=== PATIENT | female | born 1995 ===

== ENCOUNTER 2016-12-20 17:46 | Emergency (ER) | payer OTHER ==
[2016-12-20 17:54] VITALS: RESP 16; TEMP 97.9; O2SAT 99
[2016-12-20] MEDS ORDERED: Naproxen 500 MG TAB PO STA (18:09)
--- NOTE | 2016-12-20 18:12 | ED PDOC ---
HPI: Abdomen Time Seen by Provider: 12/20/16 17:58 Chief Complaint (Nursing): Female Genitourinary Chief Complaint (Provider): Abdominal Pain History Per: Patient History/Exam Limitations: no limitations Onset/Duration Of Symptoms: Hrs (x4) Current Symptoms Are (Timing): Still Present Additional Complaint(s): Grecia Whitaker is a 21 year old female who presents to the emergency department with a complaint of intermittent lower abdominal pain ongoing since 14:00 today. Denied any fever, chills, burning urination, vaginal bleeding or discharge. Patient stated she took Aleve earlier but felt no relief of symptoms. PMD: [facility] Past Medical History Reviewed: Historical Data, Nursing Documentation, Vital Signs Vital Signs: Last Vital Signs Temp 97.9 F 12/20/16 19:40 Pulse 67 12/20/16 19:40 Resp 16 12/20/16 19:40 BP 115/75 12/20/16 19:40 Pulse Ox 99 12/20/16 21:09 - Medical History PMH: No Chronic Diseases - Surgical History Surgical History: No Surg Hx - Family History Family History: States: Unknown Family Hx - Immunization History Hx Tetanus Toxoid Vaccination: No - Home Medications Home Medications: Ambulatory Orders Medication Instructions Recorded Sulfamethoxazole/Trimethoprim 1 tab PO BID #14 tab 08/18/15 [Bactrim DS 800 mg-160 mg] Naproxen [Naprosyn] 500 mg PO BID PRN #15 tablet 12/20/16 - Allergies Allergies/Adverse Reactions: Allergies Allergy/AdvReac Type Severity Reaction Status Date / Time No Known Allergies Allergy Verified 02/23/16 20:36 Review of Systems ROS Statement: Except As Marked, All Systems Reviewed And Found Negative Constitutional: Negative for: Fever, Chills Gastrointestinal: Positive for: Abdominal Pain (lower quadrants) Genitourinary Female: Negative for: Dysuria, Vaginal Discharge, Vaginal Bleeding Physical Exam - Reviewed Nursing Documentation Reviewed: Yes Vital Signs Reviewed: Yes - Physical Exam Appears: Positive for: Well, Non-toxic, No Acute Distress Head Exam: Positive for: ATRAUMATIC, NORMAL INSPECTION, NORMOCEPHALIC Skin: Positive for: Normal Color Cardiovascular/Chest: Positive for: Regular Rate, Rhythm Respiratory: Positive for: CNT, Normal Breath Sounds Gastrointestinal/Abdominal: Positive for: Bowel Sounds, Soft, Tenderness ( suprapubic LLQ). 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 Endometrium measures 2.5 mm No myometrial mass. Right ovary: Right ovary measures 3 x 1.5 x 2.7 cm. Follicles. Normal blood flow. Left ovary: Left ovary measures 2.9 x 1.5 x 2.7 cm Follicles. Normal blood flow. Free fluid: No free fluid. IMPRESSION: This examination is predicated on a negative test. No acute findings Scribe Attestation: Documented by Dayana Springer, acting as a scribe for Natividad Stubbs MD. Provider Scribe Attestation: All medical record entries made by the Scribe were at my direction and personally dictated by me. I have reviewed the chart and agree that the record accurately reflects my personal performance of the history, physical exam, medical decision making, and the department course for this patient. I have also personally directed, reviewed, and agree with the discharge instructions and disposition. Disposition - Clinical Impression Clinical Impression: Suprapubic pain - Disposition Referrals: [facility] [Outside] Disposition: Routine/Home Disposition Time: 21:11 Condition: STABLE Prescriptions: Naproxen [Naprosyn] 500 mg PO BID PRN #15 tablet PRN Reason: Pain, Moderate (4-7) Instructions: Pelvic Pain in Women (ED) Forms: [employer] (Canadian)
[2016-12-20] MEDS ORDERED: Naproxen 500 MG TAB PO ONE (18:49)
[2016-12-20 19:00] LABS: RBC URINE 1 /hpf (0-3); URINE BILIRUBIN NEGATIVE (NEGATIVE); URINE BLOOD NEGATIVE (NEGATIVE); URINE COLOR YELLOW (YELLOW); URINE GLUCOSE (UA) NEG (Normal); URINE KETONE NEGATIVE (NEGATIVE); URINE LEUKOCYTE ESTERASE NEG Leu/uL (Negative); URINE PROTEIN NEGATIVE (NEGATIVE); URINE UROBILINOGEN 0.2-1.0 mg/dL (0.2-1.0); WBC URINE 1 /hpf (0-5)
[2016-12-20 21:50] VITALS: BP 115/75; PULSE 67
--- NOTE | 2016-12-21 12:57 | US ---
HISTORY: Suprapubic, left lower quadrant pain 1 day duration. LMP 12/17/2016. COMPARISON: None available. TECHNIQUE: Transabdominal only. Real-time technique with 2D, duplex and color Doppler FINDINGS: UTERUS: Measures 2.5 x 4.2 x 6.7 cm. Normal in size and appearance. No fibroid or other mass lesion seen. ENDOMETRIUM: Measures 2.5 mm in diameter. Unremarkable. CERVIX: No cervical abnormality identified. RIGHT OVARY: Measures 1.5 x 3 x 2.7 cm. No solid mass. Normal flow. LEFT OVARY: Measures 1.5 x 2.7 x 3 cm. No solid mass. Normal flow. FREE FLUID: No significant free fluid noted. OTHER FINDINGS: None. IMPRESSION: Unremarkable pelvic ultrasound.
== END 2016-12-20 21:51 | disposition home or self-care (01) ==
LOC: H.ER 17:46
DX: R10.2 Pelvic and perineal pain (principal)

== ENCOUNTER 2017-10-08 13:45 | Emergency (ER) | payer OTHER ==
[2017-10-08 13:49] VITALS: BMI 34.0
--- NOTE | 2017-10-08 14:57 | ED PDOC ---
HPI: Abdomen Chief Complaint (Provider): abdominal pain History Per: Patient History/Exam Limitations: no limitations Onset/Duration Of Symptoms: Days (1) Outside of [place] travel?: No Current Symptoms Are (Timing): Still Present Severity: Severe Pain Scale Rating Of: 9 Location Of Pain/Discomfort: RLQ, LUQ, LLQ Quality Of Discomfort: Cramping Associated Symptoms: Constipation. denies: Fever, Chills, Nausea, Vomiting, Diarrhea, Loss Of Appetite, Back Pain, Urinary Symptoms Exacerbating Factors: None Alleviating Factors: None Last Bowel Movement: Yesterday (hard stool) <Migdalia Pereira - Last Filed: 10/08/17 18:14> <Viv Hay - Last Filed: 10/09/17 09:32> Time Seen by Provider: 10/08/17 14:19 Chief Complaint (Nursing): Abdominal Pain Additional Complaint(s): 22 yr old G presents to ED with complaint of RLQ pain which began last night while she was asleep. She did not try taking anything for the pain. Denies nausea, vomiting, fevers, chills or diarrhea. Reports hx of constipation, last bowel movement was yesterday-hard stool. She is tolerating PO fluids and liquids. Patient is sexually active, last activity was 2 days ago, used condoms , denies vaginal discharge or pruritus. Patient reports similar abdominal pain in the past with normal ultrasounds. LMP 09/27/17, reports regular periods, + dysmenorrhea. PMD: [place] PMHx: denies SurgHx: denies Meds: none Allergies: NKDA (Migdalia Pereira) Supervising Attending Note - Supervising Attending Note The Documented history was done by the: Physician Independent Jeweler, Attending Physician The documented physical exam was done by the: Physician Independent Jeweler, Attending Physician The documented procedures were done by the: Physician Independent Jeweler, Attending Physician - Attestation: I have personally seen and examined this patient.: Yes I have fully participated in the care of the patient.: Yes I have reviewed all pertinent clinical information: Yes <Viv Hay - Last Filed: 10/09/17 09:32> Past Medical History - Medical History PMH: No Chronic Diseases Denies: Chronic Kidney Disease - Surgical History Surgical History: No Surg Hx - Family History Family History: States: Unknown Family Hx - Living Arrangements Living Arrangements: With Family - Social History Current smoker - smoking cessation education provided: No Alcohol: None Drugs: Denies - Immunization History Hx Tetanus Toxoid Vaccination: No <Migdalia Pereira - Last Filed: 10/08/17 18:14> Reviewed: Historical Data, Nursing Documentation, Vital Signs <Viv Hay - Last Filed: 10/09/17 09:32> Vital Signs: Last Vital Signs Temp 98 F 10/08/17 18:18 Pulse 74 10/08/17 18:18 Resp 20 10/08/17 18:18 BP 120/70 10/08/17 18:18 Pulse Ox 98 10/08/17 18:18 - Allergies Allergies/Adverse Reactions: Allergies Allergy/AdvReac Type Severity Reaction Status Date / Time No Known Allergies Allergy Verified 02/23/16 20:36 Review of Systems Constitutional: Negative for: Fever, Chills, Sweats Eyes: Negative for: Eyelid Inflammation ENT: Negative for: Nose Discharge, Throat Pain Cardiovascular: Negative for: Chest Pain, Palpitations Respiratory: Negative for: Cough, Shortness of Breath Gastrointestinal: Positive for: Abdominal Pain, Constipation. Negative for: Nausea, Vomiting, Diarrhea Genitourinary Female: Positive for: Pelvic Pain. Negative for: Dysuria, Vaginal Discharge, Vaginal Bleeding Musculoskeletal: Negative for: Neck Pain, Shoulder Pain, Arm Pain Skin: Negative for: Rash, Lesions Neurological: Negative for: Weakness <Migdalia Pereira - Last Filed: 10/08/17 18:14> ROS Statement: Except As Marked, All Systems Reviewed And Found Negative <Viv Hay - Last Filed: 10/09/17 09:32> Physical Exam - Physical Exam Appears: Positive for: No Acute Distress Head Exam: Positive for: ATRAUMATIC, NORMOCEPHALIC Skin: Positive for: Normal Color, Warm, Dry Eye Exam: Positive for: EOMI, PERRL ENT: Negative for: Pharyngeal Erythema, Tonsillar Exudate Neck: Positive for: Painless ROM, Supple Cardiovascular/Chest: Positive for: Regular Rate, Rhythm. Negative for: Gallop , Murmur Respiratory: Positive for: Normal Breath Sounds. Negative for: Rales, Rhonchi Pulses-Carotid (L): 2+ Pulses-Carotid (R): 2+ Pulses-Radial (L): 2+ Pulses-Radial (R): 2+ Gastrointestinal/Abdominal: Positive for: Bowel Sounds (normal), Soft, Tenderness (to palpation in RLQ, LUQ and LLQ area) Extremity: Positive for: Normal ROM. 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 Negative for: Motor/Sensory Deficits <Migdalia Pereira - Last Filed: 10/08/17 18:14> - Reviewed Nursing Documentation Reviewed: Yes Vital Signs Reviewed: Yes - Physical Exam Appears: Positive for: Well, Non-toxic <Viv Hay - Last Filed: 10/09/17 09:32> - Laboratory Results Result Diagrams: 10/08/17 13:59 10/08/17 13:59 - ECG O2 Sat by Pulse Oximetry: 99 - Progress Condition: Improved <Migdalia Pereira - Last Filed: 10/08/17 18:14> - Laboratory Results Result Diagrams: 10/08/17 13:59 10/08/17 13:59 <Viv Hay - Last Filed: 10/09/17 09:32> - Progress ED Course And Treament: -Upreg: negative -Udip: negative -CBC: normal -BMP: normal -transvaginal US: essentially normal, 1.6cm left follicular cyst, no fluid in pelvis -Toradol 30mg IV once -17:25 : Patient reports symptoms have improved, tolerating PO fluids and solids (Migdalia Pereira) Disposition - Patient ED Disposition Is Patient to be Admitted: No Counseled Patient/Family Regarding: Studies Performed, Need For Followup - Disposition Disposition: Routine/Home Disposition Time: 17:58 <Migdalia Pereira - Last Filed: 10/08/17 18:14> Counseled Patient/Family Regarding: Diagnosis <Viv Hay - Last Filed: 10/09/17 09:32> - Clinical Impression Clinical Impression: Generalized abdominal pain, Constipation - Disposition [facility] [[facility]] Condition: GOOD Additional Instructions: -Follow up with your PMD within 2-3 days -Take ibuprofen PRN for pain , follow dose intructions on bottle -Take Miralax for constipation, follow crain instruction on bottle -ED precautions reviewed, return to ED if symptoms worsen or persist, or if any concerns Instructions: Constipation in Adults, Acute Abdomen (Belly Pain), Adult (DC) Forms: [facility] ED School/Work Excuse Print Language: ARMENIAN
[2017-10-08 15:33] LABS: BASO % 0.4 % (0.0-2.0); EOS # 0.1 K/uL (0.0-0.7); EOS % 1.6 % (0.0-4.0); HEMOGLOBIN 14.3 g/dL (12.0-16.0); LYMPH # 2.8 K/uL (1.0-4.3); LYMPH % 32.9 % (20.0-40.0); MEAN CELL VOLUME 92.2 fl (81.0-99.0); MEAN CORPUSCULAR HEMOGLOBIN 31.5 pg (27.0-31.0); MEAN CORPUSCULAR HGB CONC 34.2 g/dL (33.0-37.0); MEAN PLATELET VOLUME 9.1 fl (7.2-11.7); MONO # 0.6 K/uL (0.0-0.8); MONO % 6.6 % (0.0-10.0); NEUT # 4.9 K/uL (1.8-7.0); NEUT % 58.5 % (50.0-75.0); NRBC % 0.1 % (0.0-0.0); RBC 4.54 Mil/uL (3.80-5.20); RED CELL DISTRIBUTION WIDTH 12.3 % (11.5-14.5); WHITE BLOOD COUNT 8.4 K/uL (4.8-10.8)
[2017-10-08 15:45] LABS: BLOOD UREA NITROGEN 11 mg/dl (7-17); CALCIUM 9.6 mg/dL (8.4-10.2); GFR AFRICAN-AMERICAN > 60; GFR NON-AFRICAN AMERICAN > 60
--- NOTE | 2017-10-08 17:42 | US ---
PROCEDURE: HISTORY: RLQ, LLQ pain COMPARISON: TECHNIQUE: FINDINGS: UTERUS MEASURES 6.8 X 3.1 X 4.2 CENTIMETERS. THE ENDOMETRIUM IS 5 MILLIMETERS. THE RIGHT OVARY MEASURES 2.6 X 1.8 X 2.8 CENTIMETERS. LEFT OVARY MEASURES 3.1 X 2.1 X 2.5 CENTIMETERS. THERE IS A 1.6 CENTIMETER LEFT FOLLICULAR CYST. THERE IS NO FLUID THE PELVIS. IMPRESSION: ESSENTIALLY NORMAL PELVIC ULTRASOUND.
[2017-10-08 18:19] VITALS: BP 120/70; PULSE 74; RESP 20; TEMP 98; O2SAT 98
== END 2017-10-08 18:20 | disposition home or self-care (01) ==
LOC: H.ER 13:45
DX: K59.00 Constipation, unspecified (principal)

== ENCOUNTER 2018-04-11 18:24 | Emergency (ER) | payer OTHER ==
[2018-04-11 18:25] VITALS: BMI 34.0
[2018-04-11] MEDS ORDERED: Albuterol 0.083% Inhal Sol (2.5 mg/3 mL) UD INH STA (19:18)
[2018-04-11] MEDS ORDERED: guaiFENesin 200 mg/10 ml Syrup UD PO STA (19:18)
[2018-04-11] MEDS ORDERED: Albuterol-Ipratrop 3 mg / 0.5 (3 ml) UD INH STA (19:18)
--- NOTE | 2018-04-11 19:26 | ED PDOC ---
HPI: Influenza Time Seen by Provider: 04/11/18 18:55 Chief Complaint: Cough, Cold, Congestion Chief Complaint (Provider): cough History Per: Patient Exam Limitations: no limitations Onset/Duration Of Symptoms: Days (x1 month) Additional complaint(s):: Grecia Whitaker, a 22 year old female with no significant past medical history, who presents to the ED with reports of a productive cough onset x1 month. Patient states she saw her PMD 2 days ago who said her exam was normal and prescribed an unknown cough syrup that did not improve her symptoms. She has no other complaints and denies fever, chills, nausea, vomiting, throat pain, ear pain, congestion, sick contacts, prolonged immobility, or abdominal pain. No further medical complaints. PMD: [facility] Past Medical History Reviewed: Historical Data, Nursing Documentation, Vital Signs Vital Signs: Last Vital Signs Temp 98.1 F 04/11/18 18:47 Pulse 99 H 04/11/18 18:47 Resp 16 04/11/18 18:47 BP 118/70 04/11/18 18:47 Pulse Ox 99 04/11/18 18:47 - Medical History PMH: No Chronic Diseases - Surgical History Surgical History: No Surg Hx - Family History Family History: States: Unknown Family Hx - Living Arrangements Living Arrangements: With Family - Social History Current smoker - smoking cessation education provided: No - Home Medications Home Medications: Ambulatory Orders Medication Instructions Recorded Albuterol Sulfate [Ventolin Hfa] 1 puff IH Q4 #1 unit 04/11/18 Humidifier 1 each INH DAILY #1 unit 04/11/18 Promethazine DM [Phenergan DM 5 ml PO Q6 PRN #200 ml 04/11/18 Syrup] - Allergies Allergies/Adverse Reactions: Allergies Allergy/AdvReac Type Severity Reaction Status Date / Time No Known Allergies Allergy Verified 02/23/16 20:36 Review of Systems ROS Statement: Except As Marked, All Systems Reviewed And Found Negative Constitutional: Negative for: Fever, Chills ENT: Negative for: Ear Pain, Throat Pain Respiratory: Positive for: Cough Gastrointestinal: Negative for: Nausea, Vomiting, Abdominal Pain Physical Exam - Reviewed Nursing Documentation Reviewed: Yes Vital Signs Reviewed: Yes - Physical Exam Comments: GENERAL APPEARANCE: Patient is awake, alert, oriented x3, in no acute distress. Speaking in full sentences, nontoxic appearing. SKIN: Warm, dry; (-) cyanosis; (-) petechiae, (-) rash. ENMT: TMs (-) erythema (-) bulging. Pharynx: clear, uvula midline (-) tonsillar erythema, (-) tonsillar exudate. Airway patent, (-) stridor. Mucous membranes moist. NECK: Supple, FROM (-) stiffness, (-) meningismus, (-) lymphadenopathy. CHEST AND RESPIRATORY: (-) retractions, (-) rales, (-) rhonchi, (-) wheezes; breath sounds equal bilaterally. Respirations even and nonlabored. HEART AND CARDIOVASCULAR: (-) irregularity ABDOMEN AND GI: Soft; (-) tenderness; (-) distention, (-) guarding; (-) palpable mass. EXTREMITIES: (-) deformity NEURO AND PSYCH: Mental status as above. Gait: steady. Speech: clear. (-) facial asymmetry (-) aphasia Medical Decision Making Medical Decision Making: Time: 18:55 Initial Impression: Cough, Bronchospasm Initial Plan: --CXR 2 views --Albuterol 2.5 mg INH --Albuterol 3 ml INH --Robitussin 200 mg PO Time: 19:21 EKG:Sinus rhythm at 76 bmp, no ST elevation, QTc 436 2024 CXR: no acute disease as read by Tal LEE Repeat HR: 86 On re-evaluation, patient reports improvement of symptoms. On exam, patient remains AAOx3, in no acute distress. Lungs clear to auscultation, cardiac RRR,repeat neuro exam shows no focal findings. Vitals stable. Lab/Diagnostic results d/w the patient in great detail. Diagnosis of cough, bronchospasm d/w the patient. Based on history, exam and diagnostic results, plan will be for outpatient follow up with PMD. Patient instructed to follow-up with pmd / referral provided / the clinic in 1- 2 days without fail. Advised to take medication as prescribed. Return to the emergency room at any time for any new or worsening symptoms. Patient states she fully agrees with and understands discharge instructions. States that she agrees with the plan and disposition. Verbalized and repeated discharge instructions and plan. I have given the patient opportunity to ask any additional questions. Scribe Attestation: Documented by Ophelia Christian, acting as a scribe for Ami Parada PA-C. Provider Scribe Attestation: All medical record entries made by the Scribe were at my direction and personally dictated by me. I have reviewed the chart and agree that the record accurately reflects my personal performance of the history, physical exam, medical decision making, and the department course for this patient. I have also personally directed, reviewed, and agree with the discharge instructions and disposition. - Laboratory Results Urine POC: Negative - ECG O2 Sat by Pulse Oximetry: 99 (RA) Pulse Ox Interpretation: Normal Disposition - Clinical Impression Clinical Impression: Cough, Bronchospasm - Patient ED Disposition Is Patient to be Admitted: No Counseled Patient/Family Regarding: Studies Performed, Diagnosis, Need For Followup, Rx Given - Disposition Referrals: Tanja Templeton MD [Staff Provider] - Disposition: Routine/Home Disposition Time: 20:30 Condition: STABLE Additional Instructions: The emergency medical care you received today was directed at your acute symptoms. If you were prescribed any medication, please fill it and take as directed. It may take several days for your symptoms to resolve. Return to the Emergency Department if your symptoms worsen, do not improve, or if you have any other problems. Please contact your doctor in 2 days for re-evaluation and follow up / or call one of the physicians/clinics you have been referred to that are listed on the Patient Visit Information form that is included in your discharge packet. Bring any paperwork you were given at discharge with you along with any medications you are taking to your follow up visit. Our treatment cannot replace ongoing medical care by a primary care provider (PCP) outside of the emergency department. Prescriptions: Albuterol Sulfate [Ventolin Hfa] 1 puff IH Q4 #1 unit Humidifier 1 each INH DAILY #1 unit Promethazine DM [Phenergan DM Syrup] 5 ml PO Q6 PRN #200 ml PRN Reason: Cough Instructions: Cough in Adults Forms: [facility] (Martiniquais) Print Language: NICARAGUAN - POA Present On Arrival: None
[2018-04-11] MEDS ORDERED: Albuterol-Ipratrop 3 mg / 0.5 (3 ml) UD ONE (19:43)
[2018-04-11] MEDS ORDERED: Albuterol 0.083% Inhal Sol (2.5 mg/3 mL) UD ONE (19:43)
[2018-04-12 01:04] VITALS: BP 123/74; PULSE 86; RESP 16; TEMP 98.8; O2SAT 99
--- NOTE | 2018-04-12 10:26 | RAD ---
Date of service: 04/11/2018 HISTORY: Cough for 1 month COMPARISON: No prior. TECHNIQUE: Chest PA and lateral FINDINGS: LINES AND TUBES: None. LUNG AND PLEURA: The lungs are well inflated and clear. No pleural effusion or pneumothorax. HEART AND MEDIASTINUM: The heart is not enlarged. No aortic atherosclerotic calcification present. The hilar and mediastinal contours are within normal limits. SKELETAL STRUCTURES: The bony structures are within normal limits for the patient's age. VISUALIZED UPPER ABDOMEN: Normal. OTHER FINDINGS: None. IMPRESSION: No active pulmonary disease.
== END 2018-04-11 20:52 | disposition home or self-care (01) ==
LOC: H.ER 18:24
DX: R05 Cough (principal); J98.01 Acute bronchospasm

== ENCOUNTER 2018-07-11 20:15 | Emergency (ER) | payer OTHER ==
[2018-07-11 20:16] VITALS: BMI 34.0
[2018-07-11 20:24] VITALS: BP 130/83; PULSE 78; RESP 17; TEMP 98.7; O2SAT 100
--- NOTE | 2018-07-11 20:51 | ED PDOC ---
HPI: Abdomen Time Seen by Provider: 07/11/18 20:26 Chief Complaint (Nursing): Abdominal Pain Chief Complaint (Provider): Abdominal Pain History Per: Patient History/Exam Limitations: no limitations Onset/Duration Of Symptoms: Hrs (x12) Current Symptoms Are (Timing): Still Present Additional Complaint(s): 23 y/o female with no significant PMHx presents to the ED for evaluation of right posterior rib pain, onset 11 hours prior to arrival. Patient reports pain is non-radiating and worsens with movement including movement of arm. Patient states pain is associated with a mild throbbing headache. Otherwise, patient denies cough, shortness of breath, chest pain, abdominal pain and urinary symptoms. PMD: [facility] Past Medical History Reviewed: Historical Data, Nursing Documentation, Vital Signs Vital Signs: Last Vital Signs Temp 98.7 F 07/11/18 20:19 Pulse 78 07/11/18 20:19 Resp 17 07/11/18 20:19 BP 130/83 07/11/18 20:19 Pulse Ox 100 07/11/18 20:19 - Medical History PMH: No Chronic Diseases Denies: Chronic Kidney Disease - Surgical History Surgical History: No Surg Hx - Family History Family History: States: Unknown Family Hx - Immunization History Hx Tetanus Toxoid Vaccination: No - Home Medications Home Medications: Ambulatory Orders Medication Instructions Recorded Albuterol Sulfate [Ventolin Hfa] 1 puff IH Q4 #1 unit 04/11/18 Humidifier 1 each INH DAILY #1 unit 04/11/18 Promethazine DM [Phenergan DM 5 ml PO Q6 PRN #200 ml 04/11/18 Syrup] Cyclobenzaprine [Cyclobenzaprine 10 mg PO BID #15 tab 07/11/18 HCl] Lidocaine 1 each TP DAILY #10 adh..patch 07/11/18 - Allergies Allergies/Adverse Reactions: Allergies Allergy/AdvReac Type Severity Reaction Status Date / Time No Known Allergies Allergy Verified 02/23/16 20:36 Review of Systems ROS Statement: Except As Marked, All Systems Reviewed And Found Negative Musculoskeletal: Positive for: Other (rib pain) Neurological: Positive for: Headache Physical Exam - Reviewed Nursing Documentation Reviewed: Yes Vital Signs Reviewed: Yes - Physical Exam Appears: Positive for: No Acute Distress Head Exam: Positive for: ATRAUMATIC, NORMOCEPHALIC Skin: Positive for: Normal Color, Warm, Dry Eye Exam: Positive for: Normal appearance, EOMI, PERRL Neck: Positive for: Normal, Painless ROM Cardiovascular/Chest: Positive for: Regular Rate, Rhythm, Other (Tenderness to the posterior upper intercostal muscle. No crepitous or step-off.). Negative for: Murmur Respiratory: Positive for: Normal Breath Sounds. Negative for: Respiratory Distress Gastrointestinal/Abdominal: Positive for: Normal Exam, Soft. Negative for: Tenderness Extremity: Positive for: Normal ROM. Negative for: Deformity Neurologic/Psych: Positive for: Alert, Oriented. Negative for: Motor/Sensory Deficits - ECG O2 Sat by Pulse Oximetry: 100 (RA) Pulse Ox Interpretation: Normal Medical Decision Making Medical Decision Making: Time: 2033 A/P: Likely musculoskeletal sprain -- Will get CXR to rule out pulmonary involvement -- Will provide symptomatic treatment -- CXR Two Views -- Flexeril 10 mg PO -- Toradol 30 mg IM Time: 2226 --Patient reports pain relief, well appearing -- Patient is stable for discharge home with a diagnosis of musculoskeletal pain. Patient advised to follow up with PMD for further management. Patient prescribed Cyclobenzaprine HCl. Scribe Attestation: Documented by Fior Saldana, acting as a scribe for Manny Chavez MD. Provider Scribe Attestation: All medical record entries made by the Scribe were at my direction and personally dictated by me. I have reviewed the chart and agree that the record accurately reflects my personal performance of the history, physical exam, medical decision making, and the department course for this patient. I have also personally directed, reviewed, and agree with the discharge instructions and disposition. Disposition - Clinical Impression Clinical Impression: Musculoskeletal pain - Patient ED Disposition Is Patient to be Admitted: No Counseled Patient/Family Regarding: Studies Performed, Diagnosis, Need For Followup, Rx Given - Disposition Referrals: [facility] [Provider Group] Disposition: Routine/Home Disposition Time: 22:27 Condition: STABLE Prescriptions: Cyclobenzaprine [Cyclobenzaprine HCl] 10 mg PO BID #15 tab Lidocaine 1 each TP DAILY #10 adh..patch Instructions: Muscle Strain Forms: [facility] (Prydeinig)
--- NOTE | 2018-07-12 09:00 | RAD ---
Date of service: 07/11/2018 HISTORY: R upper back pain/rib pain COMPARISON: Comparison made with prior chest radiograph dated 04/10 28.. TECHNIQUE: Chest PA and lateral FINDINGS: LUNGS: No active pulmonary disease. PLEURA: No significant pleural effusion identified. No pneumothorax apparent. CARDIOVASCULAR: No aortic atherosclerotic calcification present. Normal cardiac size. No pulmonary vascular congestion. OSSEOUS STRUCTURES: Mild dextroscoliosis of centered at the thoracolumbar junction VISUALIZED UPPER ABDOMEN: Normal. OTHER FINDINGS: None. IMPRESSION: No active disease.
== END 2018-07-11 22:32 | disposition home or self-care (01) ==
LOC: H.ER 20:15
DX: M79.18 Myalgia, other site (principal)
CPT/HCPCS: 71046; 81025; 96372; 99283; J1885

== ENCOUNTER 2018-08-14 12:55 | Emergency (ER) | payer OTHER ==
[2018-08-14 12:55] VITALS: BMI 34.0
[2018-08-14 13:14] VITALS: TEMP 97.8; O2SAT 100
[2018-08-14] MEDS ORDERED: Sodium Chloride 0.9% 1,000 ML IV STA (13:19)
[2018-08-14 14:01] LABS: BASO % 0.4 % (0.0-2.0); EOS % 0.4 % (0.0-4.0); HEMOGLOBIN 14.2 g/dL (12.0-16.0); LYMPH # 2.1 K/uL (1.0-4.3); LYMPH % 31.1 % (20.0-40.0); MEAN CELL VOLUME 92.4 fl (81.0-99.0); MEAN CORPUSCULAR HEMOGLOBIN 31.8 pg (27.0-31.0); MEAN CORPUSCULAR HGB CONC 34.4 g/dL (33.0-37.0); MEAN PLATELET VOLUME 9.4 fl (7.2-11.7); MONO # 0.4 K/uL (0.0-0.8); MONO % 5.8 % (0.0-10.0); NEUT # 4.3 K/uL (1.8-7.0); NEUT % 62.3 % (50.0-75.0); RBC 4.47 Mil/uL (3.80-5.20); RED CELL DISTRIBUTION WIDTH 12.1 % (11.5-14.5); WHITE BLOOD COUNT 6.9 K/uL (4.8-10.8)
[2018-08-14 14:07] LABS: BLOOD UREA NITROGEN 10 mg/dl (7-17); CALCIUM 10.2 mg/dL (8.4-10.2); GFR NON-AFRICAN AMERICAN > 60
--- NOTE | 2018-08-14 14:33 | ED PDOC ---
HPI: Abdomen Time Seen by Provider: 08/14/18 13:12 Chief Complaint (Nursing): Abdominal Pain Chief Complaint (Provider): Pelvic Cramping, Vaginal Bleeding History Per: Patient History/Exam Limitations: no limitations Onset/Duration Of Symptoms: Days (x4) Current Symptoms Are (Timing): Still Present Additional Complaint(s): 23 year old female presents to the ED stating that she is on control and started her period four days ago with heavier than usual bleeding and pelvic cramping which concerned her, so she came in. Otherwise denies nausea, vomiting, diarrhea, back pain, and urinary symptoms. Did not take any medications prior to arrival. PMD: [place] Past Medical History Reviewed: Historical Data, Nursing Documentation, Vital Signs Vital Signs: Last Vital Signs Temp 97.8 F 08/14/18 13:12 Pulse 68 08/14/18 13:12 Resp 16 08/14/18 13:12 BP 138/87 08/14/18 13:12 Pulse Ox 100 08/14/18 13:12 - Medical History PMH: Denies: Chronic Kidney Disease Other PMH: ovarian cysts - Surgical History Surgical History: No Surg Hx - Family History Family History: States: Unknown Family Hx - Social History Current smoker - smoking cessation education provided: No Alcohol: None Drugs: Denies - Immunization History Hx Tetanus Toxoid Vaccination: No - Home Medications Home Medications: Ambulatory Orders Medication Instructions Recorded Albuterol Sulfate [Ventolin Hfa] 1 puff IH Q4 #1 unit 04/11/18 Humidifier 1 each INH DAILY #1 unit 04/11/18 Promethazine DM [Phenergan DM 5 ml PO Q6 PRN #200 ml 04/11/18 Syrup] Cyclobenzaprine [Cyclobenzaprine 10 mg PO BID #15 tab 07/11/18 HCl] Lidocaine 1 each TP DAILY #10 adh..patch 07/11/18 Ibuprofen [Motrin] 600 mg PO TID 7 Days tab 08/14/18 - Allergies Allergies/Adverse Reactions: Allergies Allergy/AdvReac Type Severity Reaction Status Date / Time No Known Allergies Allergy Verified 02/23/16 20:36 Review of Systems ROS Statement: Except As Marked, All Systems Reviewed And Found Negative Gastrointestinal: Negative for: Nausea, Vomiting, Diarrhea Genitourinary Female: Positive for: Vaginal Bleeding, Pelvic Pain (cramping). Negative for: Dysuria, Frequency, Incontinence Musculoskeletal: Negative for: Back Pain Physical Exam - Reviewed Nursing Documentation Reviewed: Yes Vital Signs Reviewed: Yes - Physical Exam Appears: Positive for: No Acute Distress Head Exam: Positive for: ATRAUMATIC, NORMAL INSPECTION, NORMOCEPHALIC Skin: Positive for: Normal Color, Warm, Dry Eye Exam: Positive for: Normal appearance ENT: Positive for: Normal ENT Inspection Neck: Positive for: Normal, Painless ROM, Supple Cardiovascular/Chest: Positive for: Regular Rate, Rhythm Respiratory: Positive for: Normal Breath Sounds. Negative for: Respiratory Distress Gastrointestinal/Abdominal: Positive for: Soft, Tenderness (mild tenderness across lower pelvis) Back: Positive for: Normal Inspection Extremity: Positive for: Normal ROM (all extremities) Neurological/Psych: Positive for: Awake, Alert, Oriented (x3) - Laboratory Results Result Diagrams: 08/14/18 12:50 08/14/18 12:50 Lab Results: no acute - ECG O2 Sat by Pulse Oximetry: 100 (RA) Pulse Ox Interpretation: Normal - CT Scan/US us Other Rad Studies (CT/US): Read By Radiologist Other Rad Interpretation: no acute - Progress ED Course And Treament: 1509: Stable. AAOx3. Pain free. Tolerated PO. Fu with pcp. Medical Decision Making Medical Decision Making: Time: 1250 Initial Impression: pelvic cramping, increased menstrual bleeding Initial Plan: --EKG --BMP --U-preg --U-dip --CBC with differential --Normal saline IV --Toradol 15mg IVP --US transvaginal --Reevaluation Scribe Attestation: Documented by Loida Gutierrez, acting as a scribe for Moris Fonseca MD. Provider Scribe Attestation: All medical record entries made by the Scribe were at my direction and personally dictated by me. I have reviewed the chart and agree that the record accurately reflects my personal performance of the history, physical exam, medical decision making, and the department course for this patient. I have also personally directed, reviewed, and agree with the discharge instructions and disposition. Disposition - Clinical Impression Clinical Impression: Abnormal vaginal bleeding - Patient ED Disposition Is Patient to be Admitted: No Counseled Patient/Family Regarding: Studies Performed, Diagnosis, Need For Fo llowup, Rx Given - Disposition [facility] - [facility]18 Disposition: Routine/Home Disposition Time: 15:10 Condition: STABLE Additional Instructions: Return if not better in 3 days. Prescriptions: Ibuprofen [Motrin] 600 mg PO TID 7 Days tab Instructions: Heavy Periods Forms: [facility] (Sinhala), [facility] ED School/Work Excuse
--- NOTE | 2018-08-14 14:36 | US ---
Date of service: 08/14/2018 HISTORY: vaginal bleeding COMPARISON: Comparison made with prior ultrasound 10/08/2017 TECHNIQUE: Transvaginal sonographic evaluation of the pelvis performed. FINDINGS: UTERUS: Measures 6.3 x 3.5 x 5.4 cm. Anteverted normal in size and appearance. No fibroid or other mass lesion seen. ENDOMETRIUM: Measures 7.2 mm in diameter. Unremarkable. CERVIX: Small cervical nabothian cyst RIGHT OVARY: Measures 2.8 x 2.2 x 2.3 cm. No solid mass. Normal flow. Follicular cysts are present LEFT OVARY: Measures 3.6 x 1.6 x 2.5 cm. No solid mass. Normal flow. Follicular cysts are present FREE FLUID: No significant free fluid noted. OTHER FINDINGS: None. IMPRESSION: Small cervical nabothian cyst. Study is otherwise unremarkable.
[2018-08-14 15:40] VITALS: BP 130/78; PULSE 70; RESP 18
== END 2018-08-14 15:41 | disposition home or self-care (01) ==
LOC: H.ER 12:55
DX: N93.9 Abnormal uterine and vaginal bleeding, unspecified (principal); N83.209 Unspecified ovarian cyst, unspecified side
CPT/HCPCS: 76830; 80048; 81025; 85025; 96361; 96374; 99283; J1885; J7030